=== PATIENT | female | born 1970 | race American Indian/Alaskan Native ===

== ENCOUNTER 2018-04-19 12:04 | Emergency (ER) | payer SELFPAY ==
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
[2018-04-19] MEDS ORDERED: Ondansetron 4 MG/2 ML SDV IVPUSH ONE (13:05)
[2018-04-19] MEDS ORDERED: HYDROmorphone 0.5 MG/0.5 ML SYRINGE IVPUSH ONE ×2 (13:05→14:38)
[2018-04-19] MEDS ORDERED: Sodium Chloride 0.9% 1,000 ML IV ONE (13:05)
[2018-04-19] MEDS ORDERED: Ondansetron 4 MG/2 ML SDV ONE (13:37)
[2018-04-19] MEDS ORDERED: LORazepam 2 MG/ML SDV IVPUSH ONE (13:45)
[2018-04-19] MEDS ORDERED: Diatrizoate Meglumine/Diatrizoate Sodium 37% 120 ML Bottle PO ONE (14:02)
[2018-04-19] MEDS ORDERED: Iopamidol 612 MG/ML 100 ML Bottle IVPUSH ONE (14:02)
[2018-04-19] MEDS ORDERED: Sodium Chloride 0.9% 10 ML Syringe FLUSH ONE (14:02)
--- NOTE | 2018-04-19 15:49 | CT ---
CT abdomen and pelvis Technique: Multiple axial sections were obtained from above the dome of the diaphragm inferiorly through the pubic symphysis. Intravenous and oral contrast was utilized. Delayed images were obtained through the bladder. Comparison: No previous study. Findings: Visualized lung bases shows nothing acute. Small amount of contrast is noted within the distal esophagus compatible with reflux. Liver shows no focal parenchymal abnormality. Prior cholecystectomy is seen. Spleen appears within normal limits. Adrenal glands show no nodule. Kidneys show symmetric contrast enhancement without hydronephrosis or mass. Pancreas appears normal. Aorta shows no aneurysmal dilatation. No retroperitoneal adenopathy or mesenteric abnormalities are seen. No pelvic mass or adenopathy is seen. Anastomotic sutures are seen within the sigmoid colon. Appendix not definitely visualized. No inflammatory change or free fluid is seen. Slight increased stool is seen throughout the colon. Delayed images shows contrast within the distal ureters and bladder. Bone window settings were reviewed which shows disc space narrowing and vacuum phenomenon within the L5-S1 disc. Impression: 1. Increased stool throughout the colon. 2. Prior cholecystectomy. 3. Nothing acute is appreciated on CT study of the abdomen and pelvis. Diagnostic code #2
== END 2018-04-19 17:09 | disposition home or self-care (01) ==
LOC: JD.ED 12:04
DX: K59.00 Constipation, unspecified (principal); F17.210 Nicotine dependence, cigarettes, uncomplicated; Z88.5 Allergy status to narcotic agent
CPT/HCPCS: 36415; 74177; 80053; 80306; 81001; 81025; 83690; 83735; 85007; 85027; 86140; 87086; 87088; 87186; 96361; 96374; 96375; 99284; G0480; J1170; J2060; J7040; J7050; Q9963; Q9967; J2405

== ENCOUNTER 2018-05-30 13:58 | Emergency (ER) | payer SELFPAY ==
[2018-05-30] MEDS ORDERED: Sodium Chloride 0.9% 10 ML Syringe FLUSH PRN (14:30)
[2018-05-30] MEDS ORDERED: LORazepam 2 MG/ML SDV IVPUSH ONE (14:30)
[2018-05-30] MEDS ORDERED: Sodium Chloride 0.9% 1,000 ML IV ONE ×2 (14:30→16:10)
[2018-05-30] MEDS ORDERED: Ondansetron 4 MG/2 ML SDV IVPUSH ONE (14:30)
--- NOTE | 2018-05-30 14:37 | EDM.PDOC ---
ED HPI GENERAL MEDICAL PROBLEM - General Chief Complaint: Neurological Problem Stated Complaint: VOMITING/DIZZY Time Seen by Provider: 05/30/18 14:12 Source of Information: Reports: Patient History Limitations: Reports: No Limitations - History of Present Illness INITIAL COMMENTS - FREE TEXT/NARRATIVE: 48-year-old female presents for evaluation and treatment of dizziness, headaches and abdominal pain. Reports symptoms have been going on for the last 3 days. Current symptoms include a headache, venous, nausea, vomiting, fevers, chills, feeling shaky and dysuria. Reports she vomited 4 times today. She is also complaining of chest palpitations and states her heart feels like it is beating incredibly fast. Of note her heart rate has been in the 80s to low 90s. She is also complaining of pain to her left lower abdomen in the left side of her back. She reports a decreased appetite and suddenly had something to eat on the way here but states she cannot keep it down. She states she is not passing much gas. She denies any diarrhea. Patient rep that she has been clean off methamphetamine for several years. Admits to injecting meth 3 days ago. Injected into the bilateral forearms. Reports that she used to smoke methamphetamines. Reports extensive past surgical history including appendectomy, cholecystecomy and multiple abdominal surgeries. She has a history of diverticulitis and pancreatitis. Patient reports she has been taking Dramamine and [id number] nausea medications and Tums at home spoke continues to have symptoms. Review the patient's record show that she was in the ER on April 19. She had labs and a CT done. diagnosis of constipation. urine was sent for culture growing 3 different types of bacteria. When she was attempted to be contacted about this her phone number was not working. She was therefore not been on any antibiotics. - Related Data Allergies Allergy/AdvReac Type Severity Reaction Status Date / Time codeine Allergy Airway Verified 05/30/18 14:05 Tightness Home Meds: Home Meds Doxycycline [Vibramycin] 100 mg PO BID #20 cap 05/30/18 [Rx] Past Medical History Gastrointestinal History: Reports: Diverticulosis, Pancreatitis [employer] History: Reports: Psychiatric History: Reports: Anxiety - Past Surgical History GI Surgical History: Reports: Appendectomy, Cholecystectomy, Colonoscopy Other GI Surgeries/Procedures: bowel resection Female Surgical History: Reports: Section, Tubal Ligation Endocrine Surgical History: Reports: Thyroidectomy Other Endocrine Surgeries/Procedures: partial thyroidectomy Social & Family History - Tobacco Use Smoking Status *Q: Never Smoker - Caffeine Use Caffeine Use: Reports: Coffee, Tea - Recreational Drug Use Recreational Drug Use: Yes Drug Use in Last 12 Months: Yes Recreational Drug Type: Reports: Methamphetamine ED ROS GENERAL - Review of Systems Review Of Systems: See Below Constitutional: Reports: Fever, Chills, Malaise, Decreased Appetite GI/Abdominal: Reports: Abdominal Pain (Left lower quadrant), Nausea, Vomiting : Reports: Dysuria Musculoskeletal: Reports: Back Pain (Left lower back) Neurological: Reports: Dizziness, Headache. Denies: Syncope ED EXAM, GENERAL - Physical Exam Exam: See Below Exam Limited By: No Limitations General Appearance: Alert, WD/WN, No Apparent Distress, Anxious, Other ( Fidgeting) Eye Exam: Bilateral Eye: Normal Inspection Ears: Normal External Exam Nose: Normal Inspection Throat/Mouth: Normal Inspection, Normal Lips, Normal Voice, No Airway Compromise Respiratory/Chest: No Respiratory Distress, Lungs Clear, Normal Breath Sounds Cardiovascular: Normal Peripheral Pulses, Regular Rate, Rhythm, No Murmur GI/Abdominal: Normal Bowel Sounds, Soft, Non-Tender Extremities: Normal Inspection, Other (scarring to the bilateral antecubital areas) Neurological: Alert, Oriented, Normal Cognition Psychiatric: Normal Affect, Normal Mood, Anxious, Other (fidgiting) Skin Exam: Warm, Dry, Normal Color, Erythema (approximately 3cm tender, warm, erythematous area to the left dorsal forearm; no abscess present) Course - Vital Signs Last Recorded V/S: Last Vital Signs Temp 97.7 F 05/30/18 14:05 Pulse 90 05/30/18 14:05 Resp 24 H 05/30/18 14:05 BP 143/97 H 05/30/18 14:05 Pulse Ox 100 05/30/18 14:05 - Orders/Labs/Meds Orders: Active Orders 24 hr Category Date Time Status Insert Urinary Catheter [OM.PC] Stat Care 05/30/18 15:19 Ordered Oxygen Therapy [RC] ASDIRECTED Care 05/30/18 15:16 Active Peripheral IV Care [RC] . DIRECTED Care 05/30/18 14:30 Active Urinary Catheter Assessment [RC] ASDIRECTED Care 05/30/18 15:21 Active Abdomen 2V AP Flat Upright [CR] Stat Exams 05/30/18 14:39 Taken CULTURE BLOOD [BC] Stat Lab 05/30/18 14:30 Ordered CULTURE URINE [RM] Stat Lab 05/30/18 15:10 Received Sodium Chloride 0.9% [Saline Flush] Med 05/30/18 14:30 Active 10 ml FLUSH ASDIRECTED PRN Blood Culture x2 Reflex Set [OM.PC] Stat Oth 05/30/18 14:30 Ordered Peripheral IV Insertion Adult [OM.PC] Routine Oth 05/30/18 14:30 Ordered Medication Orders Sodium Chloride (Saline Flush) 10 ml FLUSH ASDIRECTED PRN PRN Reason: Keep Vein Open Last Admin: 05/30/18 14:53 Dose: 10 ml Labs: Laboratory Tests 05/30/18 05/30/18 05/30/18 Range/Units 14:40 14:40 14:40 WBC 7.91 (3.98-10.04) K/mm3 RBC 4.42 (3.98-5.22) M/mm3 Hgb 13.6 (11.2-15.7) gm/L Hct 39.5 (34.1-44.9) % MCV 89.4 (79.4-94.8) fl MCH 30.8 (25.6-32.2) pg MCHC 34.4 (32.2-35.5) g/dl RDW Std Deviation 44.7 (36.4-46.3) fL Plt Count 317 (182-369) K/mm3 MPV 9.3 L (9.4-12.3) fl Neutrophils % (Manual) 74 H (40-60) % Band Neutrophils % 0 (0-10) % Lymphocytes % (Manual) 24 (20-40) % Atypical Lymphs % 0 % Monocytes % (Manual) 1 L (2-10) % Eosinophils % (Manual) 1 (0.7-5.8) % Basophils % (Manual) 0 L (0.1-1.2) Platelet Estimate Adequate Plt Morphology Comment Normal RBC Morph Comment Normal Sodium 138 (136-145) mEq/L Potassium 3.2 L (3.5-5.1) mEq/L Chloride 103 (98-107) mEq/L Carbon Dioxide 24 (21-32) mEq/L Anion Gap 14.2 (5-15) BUN 9 (7-18) mg/dL Creatinine 1.0 (0.55-1.02) mg/dL Est Cr Clr Drug Dosing 50.49 mL/min Estimated GFR (MDRD) 60 (>60) mL/min BUN/Creatinine Ratio 9.0 L (14-18) Glucose 128 H (74-106) mg/dL Lactic Acid (0.4-2.0) mmol/L Calcium 9.1 (8.5-10.1) mg/dL Magnesium (1.8-2.4) mg/dl Total Bilirubin 0.5 (0.2-1.0) mg/dL AST 15 (15-37) U/L ALT 15 (14-59) U/L Alkaline Phosphatase 86 (46-116) U/L C-Reactive Protein < 0.2 (<1.0) mg/dL Total Protein 7.3 (6.4-8.2) g/dl Albumin 3.4 (3.4-5.0) g/dl Globulin 3.9 gm/dL Albumin/Globulin Ratio 0.9 L (1-2) Lipase (73-393) U/L HCG, Quant < 1.0 mIU/mL Urine Color (Yellow) Urine Appearance (Clear) Urine pH (5.0-8.0) Ur Specific [place] (1.005-1.030) Urine Protein (Negative) Urine Glucose (UA) (Negative) Urine Ketones (Negative) Urine Occult Blood (Negative) Urine Nitrite (Negative) Urine Bilirubin (Negative) Urine Urobilinogen (0.2-1.0) Ur Leukocyte Esterase (Negative) Urine RBC (0-5) /hpf Urine WBC (0-5) /hpf Ur Epithelial Cells (0-5) /hpf Urine Bacteria (FEW) /hpf Urine Mucus (FEW) /hpf Urine Opiates Screen (NEGATIVE) Ur Buprenorphine Scrn (NEGATIVE) Ur Oxycodone Screen (NEGATIVE) Urine Methadone Screen (NEGATIVE) Ur Propoxyphene Screen (NEGATIVE) Ur Barbiturates Screen (NEGATIVE) Ur Tricyclics Screen (NEGATIVE) Ur Phencyclidine Scrn (NEGATIVE) Ur Amphetamine Screen (NEGATIVE) U Methamphetamines Scrn (NEGATIVE) U Benzodiazepines Scrn (NEGATIVE) U Cocaine Metab Screen (NEGATIVE) U Marijuana (THC) Screen (NEGATIVE) Ethyl Alcohol (0.00) gm% 05/30/18 05/30/18 05/30/18 Range/Units 14:40 15:02 15:02 WBC (3.98-10.04) K/mm3 RBC (3.98-5.22) M/mm3 Hgb (11.2-15.7) gm/L Hct (34.1-44.9) % MCV (79.4-94.8) fl MCH (25.6-32.2) pg MCHC (32.2-35.5) g/dl RDW Std Deviation (36.4-46.3) fL Plt Count (182-369) K/mm3 MPV (9.4-12.3) fl Neutrophils % (Manual) (40-60) % Band Neutrophils % (0-10) % Lymphocytes % (Manual) (20-40) % Atypical Lymphs % % Monocytes % (Manual) (2-10) % Eosinophils % (Manual) (0.7-5.8) % Basophils % (Manual) (0.1-1.2) Platelet Estimate Plt Morphology Comment RBC Morph Comment Sodium (136-145) mEq/L Potassium (3.5-5.1) mEq/L Chloride (98-107) mEq/L Carbon Dioxide (21-32) mEq/L Anion Gap (5-15) BUN (7-18) mg/dL Creatinine (0.55-1.02) mg/dL Est Cr Clr Drug Dosing mL/min Estimated GFR (MDRD) (>60) mL/min BUN/Creatinine Ratio (14-18) Glucose (74-106) mg/dL Lactic Acid 2.4 H (0.4-2.0) mmol/L Calcium (8.5-10.1) mg/dL Magnesium 1.8 (1.8-2.4) mg/dl Total Bilirubin (0.2-1.0) mg/dL AST (15-37) U/L ALT (14-59) U/L Alkaline Phosphatase (46-116) U/L C-Reactive Protein (<1.0) mg/dL Total Protein (6.4-8.2) g/dl Albumin (3.4-5.0) g/dl Globulin gm/dL Albumin/Globulin Ratio (1-2) Lipase 210 (73-393) U/L HCG, Quant mIU/mL Urine Color (Yellow) Urine Appearance (Clear) Urine pH (5.0-8.0) Ur Specific [place] (1.005-1.030) Urine Protein (Negative) Urine Glucose (UA) (Negative) Urine Ketones (Negative) Urine Occult Blood (Negative) Urine Nitrite (Negative) Urine Bilirubin (Negative) Urine Urobilinogen (0.2-1.0) Ur Leukocyte Esterase (Negative) Urine RBC (0-5) /hpf Urine WBC (0-5) /hpf Ur Epithelial Cells (0-5) /hpf Urine Bacteria (FEW) /hpf Urine Mucus (FEW) /hpf Urine Opiates Screen (NEGATIVE) Ur Buprenorphine Scrn (NEGATIVE) Ur Oxycodone Screen (NEGATIVE) Urine Methadone Screen (NEGATIVE) Ur Propoxyphene Screen (NEGATIVE) Ur Barbiturates Screen (NEGATIVE) Ur Tricyclics Screen (NEGATIVE) Ur Phencyclidine Scrn (NEGATIVE) Ur Amphetamine Screen (NEGATIVE) U Methamphetamines Scrn (NEGATIVE) U Benzodiazepines Scrn (NEGATIVE) U Cocaine Metab Screen (NEGATIVE) U Marijuana (THC) Screen (NEGATIVE) Ethyl Alcohol 0.00 (0.00) gm% 05/30/18 05/30/18 Range/Units 15:10 15:10 WBC (3.98-10.04) K/mm3 RBC (3.98-5.22) M/mm3 Hgb (11.2-15.7) gm/L Hct (34.1-44.9) % MCV (79.4-94.8) fl MCH (25.6-32.2) pg MCHC (32.2-35.5) g/dl RDW Std Deviation (36.4-46.3) fL Plt Count (182-369) K/mm3 MPV (9.4-12.3) fl Neutrophils % (Manual) (40-60) % Band Neutrophils % (0-10) % Lymphocytes % (Manual) (20-40) % Atypical Lymphs % % Monocytes % (Manual) (2-10) % Eosinophils % (Manual) (0.7-5.8) % Basophils % (Manual) (0.1-1.2) Platelet Estimate Plt Morphology Comment RBC Morph Comment Sodium (136-145) mEq/L Potassium (3.5-5.1) mEq/L Chloride (98-107) mEq/L Carbon Dioxide (21-32) mEq/L Anion Gap (5-15) BUN (7-18) mg/dL Creatinine (0.55-1.02) mg/dL Est Cr Clr Drug Dosing mL/min Estimated GFR (MDRD) (>60) mL/min BUN/Creatinine Ratio (14-18) Glucose (74-106) mg/dL Lactic Acid (0.4-2.0) mmol/L Calcium (8.5-10.1) mg/dL Magnesium (1.8-2.4) mg/dl Total Bilirubin (0.2-1.0) mg/dL AST (15-37) U/L ALT (14-59) U/L Alkaline Phosphatase (46-116) U/L C-Reactive Protein (<1.0) mg/dL Total Protein (6.4-8.2) g/dl Albumin (3.4-5.0) g/dl Globulin gm/dL Albumin/Globulin Ratio (1-2) Lipase (73-393) U/L HCG, Quant mIU/mL Urine Color Yellow (Yellow) Urine Appearance Slt cloudy H (Clear) Urine pH 8.5 H (5.0-8.0) Ur Specific [place] 1.020 (1.005-1.030) Urine Protein Negative (Negative) Urine Glucose (UA) Negative (Negative) Urine Ketones Trace H (Negative) Urine Occult Blood Negative (Negative) Urine Nitrite Negative (Negative) Urine Bilirubin Negative (Negative) Urine Urobilinogen 0.2 (0.2-1.0) Ur Leukocyte Esterase Negative (Negative) Urine RBC Not seen (0-5) /hpf Urine WBC 0-5 (0-5) /hpf Ur Epithelial Cells 0-5 (0-5) /hpf Urine Bacteria Many H (FEW) /hpf Urine Mucus Not seen (FEW) /hpf Urine Opiates Screen Negative (NEGATIVE) Ur Buprenorphine Scrn Negative (NEGATIVE) Ur Oxycodone Screen Negative (NEGATIVE) Urine Methadone Screen Negative (NEGATIVE) Ur Propoxyphene Screen Negative (NEGATIVE) Ur Barbiturates Screen Negative (NEGATIVE) Ur Tricyclics Screen Negative (NEGATIVE) Ur Phencyclidine Scrn Negative (NEGATIVE) Ur Amphetamine Screen Negative (NEGATIVE) U Methamphetamines Scrn Presumptive positive H (NEGATIVE) U Benzodiazepines Scrn Negative (NEGATIVE) U Cocaine Metab Screen Negative (NEGATIVE) U Marijuana (THC) Screen Presumptive positive H (NEGATIVE) Ethyl Alcohol (0.00) gm% Meds: Medications Generic Name Dose Route Start Last Admin Trade Name Freq PRN Reason Stop Dose Admin Sodium Chloride 10 ml 05/30/18 14:30 05/30/18 14:53 Saline Flush FLUSH 10 ml ASDIRECTED PRN Administration Keep Vein Open Discontinued Medications Generic Name Dose Route Start Last Admin Trade Name Freq PRN Reason Stop Dose Admin Ceftriaxone Sodium Confirm 05/30/18 16:18 05/30/18 16:23 Rocephin Administered 05/30/18 16:19 Not Given Dose 2 gm IV .STK-MED ONE Sodium Chloride 1,000 mls @ 999 mls/hr 05/30/18 14:30 05/30/18 14:45 Normal Saline IV 05/30/18 15:30 999 mls/hr ONETIME ONE Administration Sodium Chloride 1,000 mls @ 999 mls/hr 05/30/18 16:10 05/30/18 16:23 Normal Saline IV 05/30/18 17:10 999 mls/hr ONETIME ONE Administration Ceftriaxone Sodium 2 gm/ 100 mls @ 100 mls/hr 05/30/18 16:11 05/30/18 16:23 Sodium Chloride IV 05/30/18 17:10 100 mls/hr ONETIME ONE Administration Lorazepam 1 mg 05/30/18 14:30 05/30/18 14:46 Ativan IVPUSH 05/30/18 14:31 1 mg ONETIME ONE Administration Ondansetron HCl 4 mg 05/30/18 14:30 05/30/18 14:47 Zofran IVPUSH 05/30/18 14:31 4 mg ONETIME ONE Administration - Radiology Interpretation Free Text/Narrative:: 2 view abdominal xray shows no acute process. No air fluids lines. Due to the patient's sedation standing views no obtained. Lateral decub xrays obtained instead. Head CT Technique: Multiple axial sections through the brain were obtained. Intravenous contrast was not utilized. Comparison: No prior intracranial imaging. Findings: Ventricles along the basal cisterns and sulci over the convexities are within normal limits for the patient's age. No abnormal parenchymal densities are seen. No evidence of intracranial hemorrhage. No midline shift or mass effect is seen. Basal ganglia calcification is seen. On window settings were reviewed which shows no acute calvarial abnormality. Visualized sinuses are clear. Impression: 1. Nothing acute is seen on noncontrast head CT exam. CT cervical spine Technique: Multiple axial sections were obtained from above C1 inferiorly to the bottom of T3. Reconstructed sagittal and coronal images were obtained. Findings: Diffuse and fairly severe degenerative apophyseal change is seen which is worse on the right side. Vertebral body heights and disc spaces are maintained. Moderate right sided neural foraminal stenosis is noted at C3-4. Moderate right -sided neural foraminal stenosis is noted at C4-5. Other neural foramina appear to be patent. No bony central canal stenosis is seen. No fracture or abnormal subluxation is seen. Impression: 1. Degenerative change as noted above. 2. Nothing acute is seen on CT study of the cervical spine. - Re-Assessments/Exams Free Text/Narrative Re-Assessment/Exam: 05/30/18 15:37 Patient was given 1 mg IV Ativan for her anxiety. This has caused her significant sedation. Dropped sats into the upper 60s of 70s on room air. She is currently on 3 L via nasal cannula, recently turned down from 4 L. She is still responsive and will respond to commands and answers questions appropriately. Will get a head CT as she now reports that she did fall about 2 days ago. At this time she is only complaining of dizziness. She reports she fell down several stairs about 2 days ago. She denies any syncope but reports head trauma. 05/30/18 18:27 Patient has been sleeping. She is arousable to physical and verbal stimuli. Weaned off of the oxygen completely than her oxygen sats dropped momentarily into the 80s and placed back on 1 L. Is likely methamphetamine abuse causing her symptoms today. Rocephin given you having a urinary tract infection recently as well she is an early cellulitis forming. Plan will be started on doxycycline our follow-up clinic. We'll monitor her here in the ER until she is more appropriate. 05/30/18 20:32 Patient is more alert. Given water to drink. Reviewed the labs and imaging with the patient. Educated that she is given 2 bags of fluid and some Rocephin. Plan will be to discharge her home on antibiotics for the developing cellulites to the left forearm as well as to treat her urinary tract infection she had. Discharge instructions as documented. Departure - Departure Time of Disposition: 20:38 Disposition: Home, Self-Care 01 Condition: Fair Clinical Impression: Methamphetamine abuse, UTI (urinary tract infection), Cellulitis - Discharge Information *PRESCRIPTION DRUG MONITORING PROGRAM REVIEWED*: No *COPY OF PRESCRIPTION DRUG MONITORING REPORT IN PATIENT PEDRO: No Prescriptions: Doxycycline [Vibramycin] 100 mg PO BID #20 cap Referrals: PCP,Not In Area [Primary Care Provider] - Megan Salcido, [employer]NAGER [Nurse Practitioner] - Forms: ED Department Discharge Additional Instructions: Rest. Make sure you are drinking plenty of fluids. doxycycline 1 cap PO bid x 10 days. Take this with food. Avoid the sun or make sure you are wearing sunscreen in the sun as this medication can cause photosensitivity. This should treat both urinary tract infection and the cellulitis you have developing on your left forearm. Follow up in the clinic within 2 weeks for recheck of your symptoms. Recommend Megan Salcido at the [facility], [place]. Call [phone] to schedule with her. And avoiding methamphetamine. A packet of local resources have been provided for you should you require help. Please return to ER for symptoms change or worsen. - My Orders Last 24 Hours: My Active Orders 05/30/18 14:30 Peripheral IV Care [RC] . DIRECTED CULTURE BLOOD [BC] Stat Sodium Chloride 0.9% [Saline Flush] 10 ml FLUSH ASDIRECTED PRN Blood Culture x2 Reflex Set [OM.PC] Stat Peripheral IV Insertion Adult [OM.PC] Routine 05/30/18 14:39 Abdomen 2V AP Flat Upright [CR] Stat 05/30/18 15:10 CULTURE URINE [RM] Stat 05/30/18 15:16 Oxygen Therapy [RC] ASDIRECTED 05/30/18 15:19 Insert Urinary Catheter [OM.PC] Stat 05/30/18 15:21 Urinary Catheter Assessment [RC] ASDIRECTED - Assessment/Plan Last 24 Hours: My Active Orders 05/30/18 14:30 Peripheral IV Care [RC] . DIRECTED CULTURE BLOOD [BC] Stat Sodium Chloride 0.9% [Saline Flush] 10 ml FLUSH ASDIRECTED PRN Blood Culture x2 Reflex Set [OM.PC] Stat Peripheral IV Insertion Adult [OM.PC] Routine 05/30/18 14:39 Abdomen 2V AP Flat Upright [CR] Stat 05/30/18 15:10 CULTURE URINE [RM] Stat 05/30/18 15:16 Oxygen Therapy [RC] ASDIRECTED 05/30/18 15:19 Insert Urinary Catheter [OM.PC] Stat 05/30/18 15:21 Urinary Catheter Assessment [RC] ASDIRECTED
[2018-05-30] MEDS ORDERED: cefTRIAXone 2 GM in Sodium Chloride 0.9% 100 ML IV ONE (16:11)
[2018-05-30] MEDS ORDERED: cefTRIAXone 2 GM AdvVial IV ONE (16:18)
--- NOTE | 2018-05-30 16:26 | CT ---
CT cervical spine Technique: Multiple axial sections were obtained from above C1 inferiorly to the bottom of T3. Reconstructed sagittal and coronal images were obtained. Findings: Diffuse and fairly severe degenerative apophyseal change is seen which is worse on the right side. Vertebral body heights and disc spaces are maintained. Moderate right sided neural foraminal stenosis is noted at C3-4. Moderate right-sided neural foraminal stenosis is noted at C4-5. Other neural foramina appear to be patent. No bony central canal stenosis is seen. No fracture or abnormal subluxation is seen. Impression: 1. Degenerative change as noted above. 2. Nothing acute is seen on CT study of the cervical spine. Diagnostic code #2
--- NOTE | 2018-05-30 16:28 | CT ---
Head CT Technique: Multiple axial sections through the brain were obtained. Intravenous contrast was not utilized. Comparison: No prior intracranial imaging. Findings: Ventricles along the basal cisterns and sulci over the convexities are within normal limits for the patient's age. No abnormal parenchymal densities are seen. No evidence of intracranial hemorrhage. No midline shift or mass effect is seen. Basal ganglia calcification is seen. On window settings were reviewed which shows no acute calvarial abnormality. Visualized sinuses are clear. Impression: 1. Nothing acute is seen on noncontrast head CT exam. Diagnostic code #2
--- NOTE | 2018-05-31 11:43 | CR ---
Abdomen: Supine and decubitus views of the abdomen were obtained. Comparison: No prior abdominal x-ray, previous abdominal and pelvic CT study of 04/19/18. Bowel gas pattern appears normal. Surgical clips are seen from prior cholecystectomy. Calcifications are identified within the pelvis which are most likely due to phleboliths. Bony structures are unremarkable. No free air is seen. Impression: 1. Incidental findings. Diagnostic code #2
== END 2018-05-30 21:18 | disposition home or self-care (01) ==
LOC: JD.ED 13:58
DX: N39.0 Urinary tract infection, site not specified (principal); B96.1 Klebsiella pneumoniae [K. pneumoniae] as the cause of diseases classified elsewhere; L03.114 Cellulitis of left upper limb; F15.129 Other stimulant abuse with intoxication, unspecified; Z88.5 Allergy status to narcotic agent
CPT/HCPCS: 36415; 70450; 72125; 74019; 80053; 80306; 81001; 83605; 83690; 83735; 84702; 85007; 85027; 86140; 87040; 87086; 96361; 96365; 96375; 99285; G0480; J0696; J2060; J2405; J7030; J7040; J7050; 87088; 87186; 99284

== ENCOUNTER 2018-12-03 21:44 | Emergency (ER) | payer SELFPAY ==
[2018-12-03] MEDS ORDERED: Metoclopramide 10 MG/2 ML SDV IVPUSH ONE (23:19)
[2018-12-03] MEDS ORDERED: diphenhydrAMINE 50 MG/ML SDV IVPUSH ONE (23:19)
[2018-12-03] MEDS ORDERED: HYDROmorphone 1 MG/ML Syringe IVPUSH ONE (23:20)
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
[2018-12-03] MEDS ORDERED: Dextrose 5%-0.9% NaCl 1,000 ML IV SCH (23:30)
[2018-12-03] MEDS ORDERED: cefTRIAXone 2 GM in Sodium Chloride 0.9% 100 ML IV SCH (23:45)
[2018-12-04] MEDS ORDERED: Magnesium Citrate Solution 296 ML Bottle PO ONE (01:27)
[2018-12-04] MEDS ORDERED: Doxycycline 100 MG Cap PO ONE (01:30)
--- NOTE | 2018-12-04 07:41 | CR ---
Left hand: Four portable views of the left hand were obtained. Comparison: No prior hand study. Soft tissue swelling is identified. Small calcification is identified off the ulnar styloid process which is well corticated and is old. No acute fracture, dislocation or other bony abnormality is seen. Impression: 1. Soft tissue swelling. No acute bony abnormality is identified on the left and exam. Diagnostic code #2
--- NOTE | 2018-12-04 07:41 | CR ---
Abdomen: Supine view of the abdomen was obtained. Comparison: Prior abdominal x-ray of 05/30/18. Bowel gas pattern is normal. Calcifications are seen within the pelvis which are felt compatible with phleboliths. Surgical clips are seen from prior cholecystectomy. No soft tissue abnormality is seen. Bony structures appear within normal limits for the patient's age. Impression: 1. Nothing acute is seen on supine abdominal x-ray. Diagnostic code #2
== END 2018-12-04 02:33 | disposition home or self-care (01) ==
LOC: JD.ED 21:44 → EEVIPCON 21:44 → JD.ED 12-04 02:33
DX: K59.01 Slow transit constipation (principal); L03.114 Cellulitis of left upper limb; Z98.51 Tubal ligation status; Z88.5 Allergy status to narcotic agent; Z88.8 Allergy status to other drugs, medicaments and biological substances; Z86.2 Personal history of diseases of the blood and blood-forming organs and certain disorders involving the immune mechanism; Z90.49 Acquired absence of other specified parts of digestive tract; Z87.01 Personal history of pneumonia (recurrent); Z87.891 Personal history of nicotine dependence
CPT/HCPCS: 36415; 73130; 74018; 80053; 83690; 84703; 85007; 85027; 86140; 96361; 96365; 96375; 99284; A9270; G0480; J0696; J1170; J1200; J2765; J7030; J7042